=== PATIENT | male | born 1985 | race American Indian/Alaskan Native ===

== ENCOUNTER 2018-05-28 21:30 | Emergency (ER) | payer SELFPAY ==
[2018-05-28 21:43] VITALS: RESP 18; O2SAT 100
--- NOTE | 2018-05-28 21:53 | ED PDOC ---
Arrival/HPI - General Time Seen by Provider: 05/28/18 21:33 Historian: Patient - History of Present Illness Narrative History of Present Illness (Text): 05/28/18 21:41 Kishor Matias is a 33 year old male, whose past medical history includes tobacco abuse, who presents to the emergency department complaining of shortness of breath. Patient states he has been experiencing shortness of breath and productive cough since yesterday. Patient denies any fever, chills, abdominal pain, nausea, vomiting, diarrhea, urinary symptoms, back pain, neck pain, headache, dizziness, or any other complaints. Time/Duration: Other (yesterday) Symptom Onset: Gradual Symptom Course: Unchanged Activities at Onset: Light Context: Home Past Medical History - Provider Review Nursing Documentation Reviewed: Yes - Infectious Disease Hx of Infectious Diseases: None - Tetanus Immunization Tetanus Immunization: Unknown - Past Medical History Past Medical History: No Previous - Psychiatric Hx Depression: No Hx Emotional Abuse: No Hx Physical Abuse: No Hx Substance Use: No - Past Surgical History Past Surgical History: No Previous - Suicidal Assessment Feels Threatened In Home Enviroment: No Family/Social History - Physician Review Nursing Documentation Reviewed: Yes Family/Social History: Unknown Family HX Hx Alcohol Use: Yes Hx Substance Use: No Hx Substance Use Treatment: No Allergies/Home Meds Allergies/Adverse Reactions: Allergies No Known Allergies Allergy (Verified 05/29/18 12:23) Review of Systems - Physician Review All systems were reviewed & negative as marked: Yes - Review of Systems Constitutional: Normal. absent: Fevers Eyes: Normal ENT: Normal Respiratory: SOB, Cough, Sputum Cardiovascular: Normal. absent: Chest Pain Gastrointestinal: Normal. absent: Abdominal Pain, Diarrhea, Nausea, Vomiting Genitourinary Male: Normal. absent: Dysuria, Frequency, Hematuria, Urinary Output Changes Musculoskeletal: Normal. absent: Back Pain, Neck Pain Skin: Normal. absent: Rash Neurological: Normal. absent: Headache, Dizziness Endocrine: Normal Hemo/Lymphatic: Normal Psychiatric: Normal Physical Exam Vital Signs Reviewed: Yes Vital Signs Temp Pulse Resp BP Pulse Ox 05/28/18 23:51 98.6 F 80 18 116/57 L 100 05/28/18 21:37 98.8 F 67 18 100 Temperature: Afebrile Blood Pressure: Normal Pulse: Regular Respiratory Rate: Normal Appearance: Positive for: Well-Appearing, Non-Toxic, Comfortable Pain Distress: None Mental Status: Positive for: Alert and Oriented X 3 - Systems Exam Head: Present: Atraumatic, Normocephalic Pupils: Present: PERRL Extroacular Muscles: Present: EOMI Conjunctiva: Present: Normal Mouth: Present: Moist Mucous Membranes Neck: Present: Normal Range of Motion. No: Meningeal Signs, MIDLINE TENDERNESS , Paraspinal Tenderness Respiratory/Chest: Present: Clear to Auscultation, Good Air Exchange. No: Respiratory Distress, Accessory Muscle Use Cardiovascular: Present: Regular Rate and Rhythm, Normal S1, S2. No: Murmurs Abdomen: No: Tenderness, Distention, Peritoneal Signs Back: Present: Normal Inspection. No: CVA Tenderness, Midline Tenderness, Paraspinal Tenderness Upper Extremity: Present: Normal Inspection. No: Cyanosis, Edema Lower Extremity: Present: Normal Inspection. No: Edema Neurological: Present: GCS=15, CN II-XII Intact, Speech Normal Skin: Present: Warm, Dry, Normal Color. No: Rashes Psychiatric: Present: Alert, Oriented x 3, Normal Insight, Normal Concentration Medical Decision Making ED Course and Treatment: 05/28/18 21:41 Impression: 33 year old male complaining of shortness of breath and productive cough. Plan: -- Chest X-Ray -- Duoneb -- Reassess and disposition Progress Notes: 05/28/18 23:32 Chest X-Ray reviewed, shows no acute processes. On reevaluation the patient feels better and is in no acute distress. I have discussed the results and plan with the patient, who expresses understanding. Patient given the opportunity to ask question, all questions were answered and there is agreement with the plan to discharge the patient home. Patient is stable for discharge. Patient was instructed to follow up with physician/clinic in 1-2 days or return if symptoms persist/worsen or new concerning symptoms arise.. - RAD Interpretation Radiology Orders: 05/28/18 21:46 CHEST TWO VIEWS (PA/LAT) [RAD] Stat Clipper Machine: ED Physician - Medication Orders Current Medication Orders: Discontinued Medications Albuterol/Ipratropium (Duoneb 3 Mg/0.5 Mg (3 Ml) Ud) 3 ml IH Q15M DENA Stop: 05/28/18 22:31 Last Admin: 05/28/18 23:03 Dose: 3 ml Amoxicillin (Amoxil 500 Mg Cap) 500 mg PO STAT STA PRN Reason: Protocol Stop: 05/28/18 23:41 Last Admin: 05/28/18 23:57 Dose: 500 mg Prednisone (Prednisone Tab) 60 mg PO ONCE STA Stop: 05/28/18 23:41 Last Admin: 05/29/18 00:02 Dose: 60 mg - Scribe Statement The provider has reviewed the documentation as recorded by the [place] Provider Scribe Attestation: All medical record entries made by the Jacobibnate were at my direction and personally dictated by me. I have reviewed the chart and agree that the record accurately reflects my personal performance of the history, physical exam, medical decision making, and the department course for this patient. I have also personally directed, reviewed, and agree with the discharge instructions and disposition. Disposition/Present on Arrival - Present on Arrival Any Indicators Present on Arrival: No History of DVT/PE: No History of Uncontrolled Diabetes: No Urinary Catheter: No History Surgical Site Infection Following: None - Disposition Have Diagnosis and Disposition been Completed?: Yes Diagnosis: Bronchitis Disposition: HOME/ ROUTINE Disposition Time: 23:25 Condition: GOOD Discharge Instructions (ExitCare): Acute Bronchitis Prescriptions: Amoxicillin 875 mg PO BID #20 tab predniSONE [predniSONE Tab] 20 mg PO TID #15 tab Albuterol HFA [Ventolin HFA] 1 puff IH QID #1 puff Forms: [facility] (Malagasy), WORK NOTE
[2018-05-28] MEDS: Albuterol-Ipratrop 3 mg / 0.5 (3 ml) UD IH SCH ×3 (22:07→23:03)
[2018-05-28 23:52] VITALS: BP 116/57; PULSE 80; TEMP 98.6
--- NOTE | 2018-05-29 09:11 | RAD ---
Date of service: 05/28/2018 HISTORY: sob COMPARISON: No prior. TECHNIQUE: Chest PA and lateral FINDINGS: LUNGS: No active pulmonary disease. PLEURA: No significant pleural effusion identified. No pneumothorax apparent. CARDIOVASCULAR: Normal. OSSEOUS STRUCTURES: No significant abnormalities. VISUALIZED UPPER ABDOMEN: Normal. OTHER FINDINGS: None. IMPRESSION: No active disease.
== END 2018-05-28 23:55 | disposition home or self-care (01) ==
LOC: ED 21:30
DX: J40 Bronchitis, not specified as acute or chronic (principal)

== ENCOUNTER 2018-05-29 12:18 | Emergency (ER) | payer SELFPAY ==
[2018-05-29 12:22] VITALS: BMI 24.7
[2018-05-29 12:24] VITALS: RESP 18
[2018-05-29] MEDS ORDERED: guaiFENesin DM 200 mg-20 mg/10 ml UD PO STA (12:39)
[2018-05-29] MEDS ORDERED: Albuterol-Ipratrop 3 mg / 0.5 (3 ml) UD IH STA (12:39)
--- NOTE | 2018-05-29 13:08 | ED PDOC ---
Arrival/HPI - General Chief Complaint: Shortness Of Breath Time Seen by Provider: 05/29/18 12:20 Historian: Patient - History of Present Illness Narrative History of Present Illness (Text): 05/29/18 12:25 33 year old male, whose past medical history includes tobacco abuse, who presents complaining of shortness of breath for past 3 days and congestion. Patient denies history of asthma and notes he had bronchitis when he was young. Patient notes he has phlegm buildup in throat, which is cleared out with coughing. Patient states he is currently slightly calmer. Patient denies any fevers, chills, chest pain, abdominal pain, nausea, vomiting, diarrhea, back pain, neck pain, urinary symptoms, headache, dizziness, or any other complaint. Time/Duration: > week (past 3 days) Symptom Onset: Sudden Symptom Course: Unchanged Activities at Onset: Light Past Medical History - Provider Review Nursing Documentation Reviewed: Yes - Infectious Disease Hx of Infectious Diseases: None - Tetanus Immunization Tetanus Immunization: Unknown - Past Medical History Past Medical History: No Previous - Psychiatric Hx Depression: No Hx Emotional Abuse: No Hx Physical Abuse: No Hx Substance Use: Yes (marijuana) - Past Surgical History Past Surgical History: No Previous - Anesthesia Hx Anesthesia: No - Suicidal Assessment Feels Threatened In Home Enviroment: No Family/Social History - Physician Review Nursing Documentation Reviewed: Yes Family/Social History: No Known Family HX Smoking Status: Light Smoker < 10 Cigarettes Daily Hx Alcohol Use: Yes Hx Substance Use: Yes (marijuana) Hx Substance Use Treatment: No Allergies/Home Meds Allergies/Adverse Reactions: Allergies No Known Allergies Allergy (Verified 05/29/18 12:23) Review of Systems - Physician Review All systems were reviewed & negative as marked: Yes - Review of Systems Constitutional: Normal. absent: Fevers Eyes: Normal ENT: Normal Respiratory: SOB, Cough, Sputum, Other (feels congested before clearing out phlegm ). absent: Normal Cardiovascular: Normal. absent: Chest Pain Gastrointestinal: Normal. absent: Abdominal Pain, Diarrhea, Nausea, Vomiting Genitourinary Male: Normal. absent: Urinary Output Changes Musculoskeletal: Normal. absent: Back Pain, Neck Pain Skin: Normal. absent: Rash Neurological: Normal Endocrine: Normal Hemo/Lymphatic: Normal Psychiatric: Normal Physical Exam Vital Signs Reviewed: Yes Vital Signs Temp Pulse Resp BP Pulse Ox 05/29/18 17:06 98.4 F 64 18 128/73 100 05/29/18 16:00 98.4 F 63 18 128/70 99 05/29/18 14:36 98.5 F 64 18 137/74 100 05/29/18 12:20 18 100 05/29/18 12:18 98.5 F 70 18 132/79 100 Temperature: Afebrile Blood Pressure: Normal Pulse: Regular Respiratory Rate: Normal Appearance: Positive for: Well-Appearing, Non-Toxic Pain Distress: None Mental Status: Positive for: Alert and Oriented X 3 - Systems Exam Head: Present: Atraumatic, Normocephalic Pupils: Present: PERRL Extroacular Muscles: Present: EOMI Conjunctiva: Present: Normal Mouth: Present: Moist Mucous Membranes Neck: Present: Normal Range of Motion Respiratory/Chest: Present: Clear to Auscultation, Good Air Exchange. No: Respiratory Distress, Accessory Muscle Use Cardiovascular: Present: Regular Rate and Rhythm, Normal S1, S2. No: Murmurs Abdomen: No: Tenderness, Distention, Peritoneal Signs Back: Present: Normal Inspection Upper Extremity: Present: Normal Inspection. No: Cyanosis, Edema Lower Extremity: Present: Normal Inspection. No: Edema Neurological: Present: GCS=15, CN II-XII Intact, Speech Normal Skin: Present: Warm, Dry, Normal Color. No: Rashes Psychiatric: Present: Alert, Oriented x 3, Normal Insight, Normal Concentration Medical Decision Making ED Course and Treatment: 05/29/18 12:25 Impression: 33 year old male who presents to the Emergency department for shortness of breath. Differential Diagnosis included but are not limited to: bronchitis vs viral symptoms Plan: -- Duoneb -- Prednisone -- Robitussin -- Reassess and disposition Prior Visits: Notes and results from previous visits were reviewed. Patient was last seen in the emergency department yesterday on 05/28/18 for shortness of breath. Patient was discharged home with clear Chest X-Ray reading. Progress Notes: Chest X-Ray reviewed from yesterday 05/28/18 23:32, which showed no acute processes. 05/29/18 17:06 Patient felt better after medications but he was concerned he'd have another coughing spell. I discussed the symptoms with him and his Mother who is at bedside. We observed him in the ED for several hours to make sure he felt comfortable going home. He had no coughing spells nor any shortness of breathe in the ED. He and his mom feel comfortable going home at this time. They will return to the ED if any further symptoms worsen or any other concern. - Medication Orders Current Medication Orders: Discontinued Medications Albuterol/Ipratropium (Duoneb 3 Mg/0.5 Mg (3 Ml) Ud) 3 ml IH STAT STA Stop: 05/29/18 12:40 Last Admin: 05/29/18 12:45 Dose: 3 ml Guaifenesin/Dextromethorphan (Robitussin Dm) 10 ml PO STAT STA Stop: 05/29/18 12:40 Last Admin: 05/29/18 12:45 Dose: 10 ml Lorazepam (Ativan) 1 mg IM ONCE ONE PRN Reason: Protocol Stop: 05/29/18 13:51 Last Admin: 05/29/18 14:18 Dose: 1 mg IM Administration Charges Document 05/29/18 14:18 LA (Rec: 05/29/18 14:18 LA [id number]) Injection Site MAR Injection Site Left Arm Charges for Administration # of IM Administrations 1 Prednisone (Prednisone Tab) 60 mg PO STAT ONE Stop: 05/29/18 12:41 Last Admin: 05/29/18 12:45 Dose: 60 mg - Jacobibe Statement The provider has reviewed the documentation as recorded by the Jacobibnate Lancasterh All medical record entries made by the Jacobibnate were at my direction and personally dictated by me. I have reviewed the chart and agree that the record accurately reflects my personal performance of the history, physical exam, medical decision making, and the department course for this patient. I have also personally directed, reviewed, and agree with the discharge instructions and disposition. Disposition/Present on Arrival - Present on Arrival Any Indicators Present on Arrival: No History of DVT/PE: No History of Uncontrolled Diabetes: No Urinary Catheter: No History of Decub. Ulcer: No History Surgical Site Infection Following: None - Disposition Have Diagnosis and Disposition been Completed?: Yes Diagnosis: Bronchitis Disposition: HOME/ ROUTINE Disposition Time: 17:00 Patient Plan: Discharge Condition: IMPROVED Discharge Instructions (ExitCare): Chronic Bronchitis (DC) Additional Instructions: SHAWN DOUGLAS, thank you for letting us take care of you today. Your provider was Devyn Andrea DO and you were treated for Bronchitis. The emergency medical care you received today was directed at your acute symptoms. If you were prescribed any medication, please fill it and take as directed. It may take several days for your symptoms to resolve. Return to the Emergency Department if your symptoms worsen, do not improve, or if you have any other problems. Please contact your doctor or call one of the physicians/clinics you have been referred to that are listed on the Patient Visit Information form that is included in your discharge packet. Bring any paperwork you were given at discharge with you along with any medications you are taking to your follow up visit. Our treatment cannot replace ongoing medical care by a primary care provider outside of the emergency department. Thank you for allowing the [facility] team to be part of your care today. If you had an X-Ray or CT scan: A Radiologist will review the ED reading if any change in treatment is needed we will contact you. If you had a blood, urine, or wound culture: It will take several days for the results, if any change in treatment is needed we will contact you. If you had an STI test: It will take 48 hours for the results. Please call after 1 week if you have not heard back. Referrals: [facility] [Outside] - Follow up with primary [facility] [place] [place] [Outside] - Follow up with primary Forms: [employer] (Croatian)
[2018-05-29 17:06] VITALS: TEMP 98.4
[2018-05-29 17:07] VITALS: BP 128/73; PULSE 64; O2SAT 100
== END 2018-05-29 17:06 | disposition home or self-care (01) ==
LOC: ED 12:18
DX: J40 Bronchitis, not specified as acute or chronic (principal); F17.210 Nicotine dependence, cigarettes, uncomplicated
CPT/HCPCS: 96372; 99284; J2060

== ENCOUNTER 2018-05-30 18:53 | Emergency (ER) | payer SELFPAY ==
[2018-05-30 18:53] VITALS: BMI 24.7
[2018-05-30 19:11] VITALS: PULSE 77; TEMP 98.7; O2SAT 100
[2018-05-30] MEDS ORDERED: Ipratropium 0.02% Inhal Soln (0.5 mg/2.5 ml) UD IH STA (19:15)
[2018-05-30] MEDS ORDERED: Albuterol 0.083% Inhal Sol (2.5 mg/3 mL) UD INH STA ×3 (19:15→20:34)
[2018-05-30] MEDS ORDERED: Sodium Chloride 0.9% 1,000 ML IV STA (19:15)
--- NOTE | 2018-05-30 19:33 | ED PDOC ---
Arrival/HPI - General Chief Complaint: Shortness Of Breath Time Seen by Provider: 05/30/18 19:06 Historian: Patient - History of Present Illness Narrative History of Present Illness (Text): 33 y/o M w/ h/o bronchitis presenting to the ED for persistent coughing and chest pain. Patient states he had been experiencing hacking cough with associated chest tightness and nausea as well. He reports having the sensation of phlegm within his throat that he is unable to clear out. He denies fevers, headaches, abdominal pain, back pain, syncopal episodes, weakness or palpitations. Per the patient's dad, the patient was seen in the ED yesterday and was discharged with Augmentin and steroids. He reports being unable to tolerate PO intake and has been dehydrated as a result of his symptoms. PCP: None Time/Duration: Prior to Arrival Symptom Course: Worsening Quality: Aching Severity Level: Moderate Activities at Onset: Emotional Upset Context: Home Past Medical History - Provider Review Nursing Documentation Reviewed: Yes - Travel History Have you recently traveled outside [place] w/in the past 3 mons?: No - Patient History Narrative Patient History: Bronchitis - Infectious Disease Hx of Infectious Diseases: None - Tetanus Immunization Tetanus Immunization: Unknown - Past Medical History Past Medical History: No Previous - Psychiatric Hx Depression: No Hx Emotional Abuse: No Hx Physical Abuse: No Hx Substance Use: Yes (marijuana) - Past Surgical History Past Surgical History: No Previous - Anesthesia Hx Anesthesia: No - Suicidal Assessment Feels Threatened In Home Enviroment: No Family/Social History - Physician Review Nursing Documentation Reviewed: Yes Family/Social History: Unknown Family HX Smoking Status: Light Smoker < 10 Cigarettes Daily Hx Alcohol Use: Yes Frequency of alcohol use: Socially Hx Substance Use: Yes (marijuana) Hx Substance Use Treatment: No Allergies/Home Meds Allergies/Adverse Reactions: Allergies No Known Allergies Allergy (Verified 05/29/18 12:23) Review of Systems - Physician Review All systems were reviewed & negative as marked: Yes - Review of Systems Constitutional: absent: Fatigue, Fevers, Night Sweats Eyes: absent: Vision Changes, Photophobia ENT: absent: Hearing Changes, Tinnitus Respiratory: SOB, Cough, Sputum. absent: Wheezing Cardiovascular: Chest Pain. absent: Palpitations, Edema Gastrointestinal: absent: Abdominal Pain, Constipation, Diarrhea, Vomiting Genitourinary Male: absent: Dysuria, Hematuria Musculoskeletal: absent: Back Pain, Joint Swelling Skin: absent: Rash, Skin Lesions Neurological: Dizziness. absent: Headache, Focal Weakness Endocrine: absent: Diaphoresis Psychiatric: Anxiety Physical Exam Vital Signs Reviewed: Yes Vital Signs Temp Pulse Resp BP Pulse Ox 05/30/18 21:09 77 18 127/72 100 05/30/18 19:30 18 99 05/30/18 19:10 98.7 F 77 24 138/85 100 Temperature: Afebrile Blood Pressure: Normal Pulse: Regular Respiratory Rate: Normal Appearance: Positive for: Non-Toxic, Uncomfortable Pain Distress: Mild Mental Status: Positive for: Alert and Oriented X 3 - Systems Exam Head: Present: Atraumatic, Normocephalic Pupils: Present: PERRL Extroacular Muscles: Present: EOMI Mouth: Present: Dry Pharnyx: No: ERYTHEMA, EXUDATE, TONSILS ENLARGED Neck: Present: Normal Range of Motion. No: Meningeal Signs, MIDLINE TENDERNESS Respiratory/Chest: Present: Decreased Breath Sounds, Tachypneic. No: Accessory Muscle Use, Wheezes Cardiovascular: Present: Regular Rate and Rhythm, Normal S1, S2. No: Tachycardic Abdomen: Present: Normal Bowel Sounds. No: Tenderness, Distention, Peritoneal Signs Neurological: Present: GCS=15, CN II-XII Intact, Speech Normal Skin: Present: Warm, Dry, Normal Color Psychiatric: Present: Alert, Oriented x 3, Normal Insight Medical Decision Making ED Course and Treatment: 05/30/18 19:54 Impression 33 y/o M w/ coughing and chills consistent with bronchitis Given patient denies fevers, chills or purulent cough, its less likely patient has PNA. Will check labs. Differential Includes But is Not Limited To: Bronchitis PNA Plan --Labs --Duoenebs --Methyprednisolone --Reassess & disposition Progress Notes 05/30/18 20:35 Patient noted to be sleeping and comfortable after nebulizer treatments. Reiteration of the importance of medication administration and adherence given to patient and father who demonstrate understanding. Scripts provided. Patient stable for discharge. - Lab Interpretations Lab Results: 05/30/18 20:00 05/30/18 20:00 Lab Results 05/30/18 20:00: Sodium 138, Potassium 4.2, Chloride 102, Carbon Dioxide 20 L, Anion Gap 21 H, BUN 19, Creatinine 1.0, Est GFR ( Amer) > 60, Est GFR ( Non-Af Amer) > 60, Random Glucose 115 H, Calcium 10.6 H, Total Bilirubin 1.1, AST 34, ALT 22, Alkaline Phosphatase 50, Troponin I < 0.01, Total Protein 8.7 H , Albumin 5.1 H, Globulin 3.6, Albumin/Globulin Ratio 1.4 05/30/18 20:00: WBC 13.5 H, RBC 5.31, Hgb 15.5, Hct 44.2, MCV 83.2, MCH 29.2, MCHC 35.1, RDW 13.9, Plt Count 248, MPV 11.7 H, Gran % 85.7 H, Lymph % (Auto) 10.0 L, [place] % (Auto) 4.1, Eos % (Auto) 0.1 L, Baso % (Auto) 0.1, Gran # 11.57 H , Lymph # (Auto) 1.4, [place] # (Auto) 0.6, Eos # (Auto) 0.0, Baso # (Auto) 0.02 - Medication Orders Current Medication Orders: Discontinued Medications Albuterol Sulfate (Albuterol 0.083% Inhal Maria Luisa (2.5 Mg/3 Ml) Ud) 2.5 mg INH STAT STA Stop: 05/30/18 19:16 Last Admin: 05/30/18 20:12 Dose: 2.5 mg Albuterol Sulfate (Albuterol 0.083% Inhal Maria Luisa (2.5 Mg/3 Ml) Ud) 2.5 mg INH STAT STA Stop: 05/30/18 19:45 Last Admin: 05/30/18 20:12 Dose: 2.5 mg Albuterol Sulfate (Albuterol 0.083% Inhal Maria Luisa (2.5 Mg/3 Ml) Ud) 2.5 mg INH STAT STA Stop: 05/30/18 20:35 Last Admin: 05/30/18 21:02 Dose: 2.5 mg Diazepam (Valium) 2 mg PO ONCE ONE PRN Reason: Protocol Stop: 05/30/18 19:17 Last Admin: 05/30/18 20:12 Dose: 2 mg Sodium Chloride (Sodium Chloride 0.9%) 1,000 mls @ 999 mls/hr IV .Q1H1M STA Stop: 05/30/18 20:15 Last Admin: 05/30/18 20:10 Dose: 999 mls/hr eMAR Start Stop Document 05/30/18 20:10 AD (Rec: 05/30/18 20:12 AD [email or web address] Intravenous Solution Start Date 05/30/18 Start Time 20:12 Ipratropium [place] (Atrovent) 0.5 mg IH STAT STA Stop: 05/30/18 19:16 Last Admin: 05/30/18 20:12 Dose: 0.5 mg Ketorolac Tromethamine (Toradol) 60 mg IM STAT STA Stop: 05/30/18 19:16 Last Admin: 05/30/18 20:12 Dose: 60 mg MAR Pain Assessment Document 05/30/18 20:12 AD (Rec: 05/30/18 20:12 AD [id number] Pain Reassessment Is this a pain reassessment? No IM Administration Charges Document 05/30/18 20:12 AD (Rec: 05/30/18 20:12 AD [email or web address] Injection Site MAR Injection Site Right Gluteus Jan Charges for Administration # of IM Administrations 1 Methylprednisolone (Solu-Medrol) 125 mg IVP STAT STA Stop: 05/30/18 19:46 Last Admin: 05/30/18 20:12 Dose: 125 mg IVP Administration Document 05/30/18 20:12 AD (Rec: 05/30/18 20:13 AD [email or web address] Charges for Administration # of IVP Administrations 1 - Scribe Statement The provider has reviewed the documentation as recorded by the Jacobibnate Marin All medical record entries made by the Jacobibnate were at my direction and personally dictated by me. I have reviewed the chart and agree that the record accurately reflects my personal performance of the history, physical exam, medical decision making, and the department course for this patient. I have also personally directed, reviewed, and agree with the discharge instructions and disposition. Disposition/Present on Arrival - Present on Arrival Any Indicators Present on Arrival: No History of DVT/PE: No History of Uncontrolled Diabetes: No Urinary Catheter: No History of Decub. Ulcer: No History Surgical Site Infection Following: None - Disposition Have Diagnosis and Disposition been Completed?: Yes Diagnosis: Bronchitis Disposition: HOME/ ROUTINE Disposition Time: 20:40 Patient Plan: Discharge Condition: IMPROVED Discharge Instructions (ExitCare): Acute Bronchitis, Adult (DC) Prescriptions: Albuterol 0.083% [Albuterol 0.083% Inhal Maria Luisa (2.5 mg/3 ml) UD] 2.5 mg IH Q4H 2 Days #6 neb diaZEpam [Valium] 2 mg PO PRN PRN 3 Days #4 tab PRN Reason: Anxiety Referrals: [facility] [Outside] - Follow up with primary Forms: [employer] (Pashto)
[2018-05-30 20:36] LABS: WHITE BLOOD COUNT 13.5 10^3/ul (4.5-11.0)
[2018-05-30 20:37] LABS: BASO % 0.1 % (0.0-3.0); EOS % 0.1 % (1.5-5.0); GRAN # 11.57 (1.4-6.5); GRAN % 85.7 % (50.0-68.0); HEMOGLOBIN 15.5 g/dL (14.0-18.0); MEAN CELL VOLUME 83.2 fl (80.0-105.0); MEAN CORPUSCULAR HEMOGLOBIN 29.2 pg (25.0-35.0); MEAN CORPUSCULAR HGB CONC 35.1 g/dl (31.0-37.0); MEAN PLATELET VOLUME 11.7 fl (7.0-11.0); MONO % 4.1 % (1.0-6.0); RBC 5.31 10^6/uL (3.5-6.1); RED CELL DISTRIBUTION WIDTH 13.9 % (11.5-14.5)
[2018-05-30 20:38] LABS: BASO # 0.02 K/mm3 (0.0-2.0); LYMPH # 1.4 (1.2-3.4); MONO # 0.6 (0.1-0.6)
[2018-05-30 20:42] LABS: ALB/GLOB RATIO 1.4 (1.1-1.8); ALBUMIN 5.1 g/dL (3.0-4.8); ALT/SGPT 22 U/L (7-56); AST/SGOT 34 U/L (17-59); BLOOD UREA NITROGEN 19 mg/dL (7-21); CALCIUM 10.6 mg/dL (8.4-10.5); GFR AFRICAN-AMERICAN > 60; GFR NON-AFRICAN AMERICAN > 60
[2018-05-30 20:52] LABS: TROPONIN I < 0.01 ng/mL
[2018-05-30 21:50] VITALS: BP 127/72; RESP 18
== END 2018-05-30 21:09 | disposition home or self-care (01) ==
LOC: ED 18:53
DX: J40 Bronchitis, not specified as acute or chronic (principal); F17.210 Nicotine dependence, cigarettes, uncomplicated
CPT/HCPCS: 80053; 84484; 85025; 96372; 96374; 99284; J1885; J2930; J7030

== ENCOUNTER 2018-07-28 20:03 | Emergency (ER) | payer SELFPAY ==
[2018-07-28 20:03] VITALS: BMI 24.7
[2018-07-28 20:26] VITALS: TEMP 99
--- NOTE | 2018-07-28 21:55 | ED PDOC ---
Arrival/HPI - General Chief Complaint: Shortness Of Breath Time Seen by Provider: 07/28/18 21:26 Historian: Patient - History of Present Illness Narrative History of Present Illness (Text): 07/28/18 21:37 33 year old male former smoker, with no significant past medical history, presents to the emergency department for evaluation of trouble breathing, and chest pressure, for the past month. Patient states he has been having similar symptoms ever since being diagnosed with bronchitis a 2 months ago. Patient states he has been waking up in the morning with labored breathing, and feelings of something stuck in his throat. Patient informs of having acid reflux symptoms over this period of time as well. Patient states he quit smoking cigarettes in May, smokes marijuana twice daily, and occasional alcohol use. Patient denies any denies fevers, chills, headache, dizziness, abdominal pain, nausea, vomiting, diarrhea, back pain, neck pain, urinary/bowel changes, or any other complaint. Time/Duration: Prior to Arrival, 24 hours (Symptoms worsened in past day) Symptom Onset: Gradual Symptom Course: Unchanged Past Medical History - Provider Review Nursing Documentation Reviewed: Yes - Infectious Disease Hx of Infectious Diseases: None - Tetanus Immunization Tetanus Immunization: Unknown - Past Medical History Past Medical History: No Previous - Cardiac Hx Cardiac Disorders: No - Pulmonary Hx Respiratory Disorders: Yes Hx Bronchitis: Yes - Neurological Hx Neurological Disorder: No - HEENT Hx HEENT Disorder: No - Renal Hx Renal Disorder: No - Endocrine/Metabolic Hx Endocrine Disorders: No - Hematological/Oncological Hx Blood Disorders: No - Integumentary Hx Dermatological Disorder: No - Musculoskeletal/Rheumatological Hx Musculoskeletal Disorders: No - Gastrointestinal Hx Gastrointestinal Disorders: No - Genitourinary/Gynecological Hx Genitourinary Disorders: No - Psychiatric Hx Psychophysiologic Disorder: No Hx Substance Use: Yes (marijuana) - Past Surgical History Past Surgical History: No Previous - Anesthesia Hx Anesthesia: No - Suicidal Assessment Feels Threatened In Home Enviroment: No Family/Social History - Physician Review Nursing Documentation Reviewed: Yes Family/Social History: No Known Family HX Smoking Status: Former Smoker Hx Alcohol Use: Yes Hx Substance Use: Yes (marijuana) Hx Substance Use Treatment: No Allergies/Home Meds Allergies/Adverse Reactions: Allergies No Known Allergies Allergy (Verified 07/28/18 20:21) Review of Systems - Physician Review All systems were reviewed & negative as marked: Yes - Review of Systems Constitutional: absent: Fevers, Night Sweats Gastrointestinal: absent: Abdominal Pain, Diarrhea, Nausea, Vomiting Genitourinary Male: absent: Urinary Output Changes Musculoskeletal: absent: Back Pain, Neck Pain Neurological: absent: Headache, Dizziness Physical Exam - Physical Exam Narrative Physical Exam (Text): 07/28/18 21:56 Gen: VS reviewed, alert, well developed, well nourished, nontoxic, mild distress. ENT: normal pharynx. Eye: EOMI, PERRL. Neck: no JVD, supple, no adenopathy. CV: regular rate, regular rhythm, no rubs, no murmur, no gallops, S1, S2, pulses equal and strong. Pulm: no distress, clear to auscultation, no wheeze, no rhonchi, breath sounds equal, no rales. Abd: soft, nontender, no guarding, no rebound, no rigidity, normal bowel sounds. Ext: no edema. Skin: good color, no rash, no cyanosis. Psych: responds appropriately to questions, normal affect. Neuro: oriented x 3, CN2-12 intact grossly, motor intact, sensation intact. Vital Signs Reviewed: Yes Vital Signs Temp Pulse Resp BP Pulse Ox 07/28/18 20:22 99.0 F 58 L 16 130/77 99 Temperature: Afebrile Blood Pressure: Normal Pulse: Regular Respiratory Rate: Normal Appearance: Positive for: Well-Appearing, Non-Toxic, Comfortable Pain Distress: None Mental Status: Positive for: Alert and Oriented X 3 Medical Decision Making ED Course and Treatment: 07/28/18 21:58 Impression: 33 year old male presents for evaluation of trouble breathing. Plan: -- EKG -- Chest X-ray -- Reassess and disposition Prior Visits: Notes and results from previous visits were reviewed. Progress Notes: 07/28/18 22:05 Patient has been encouraged to stop smoking marijuana as it may contribute to his symptoms. 07/29/18 00:00 patient feels well and ready to go home. patient was seen for symptoms suggestive of GERD and nonturnal regurgitation. patient encouraged to make an appointment with export freight manager for eventual endoscopy. patient remained stable throughout ED course. patient to empirically take antacid. - RAD Interpretation Narrative RAD Interpretations (Text): 07/28/18 23:58 cxr my read: no focal infiltrate, no ptx, no wide mediastinum Radiology Orders: 07/28/18 21:26 CXR [CHEST TWO VIEWS (PA/LAT)] [RAD] Stat Furnace Firer: ED Physician - EKG Interpretation EKG Interpretation (Text): 07/28/18 22:46 sinus bradycardia at 56 bpm, nml qrs, nml axis, no acute sttw abn Interpreted by ED Physician: Yes - Scribe Statement The provider has reviewed the documentation as recorded by the Scribe Maurice Bianchi Provider Scribe Attestation: All medical record entries made by the Scribe were at my direction and personally dictated by me. I have reviewed the chart and agree that the record accurately reflects my personal performance of the history, physical exam, medical decision making, and the department course for this patient. I have also personally directed, reviewed, and agree with the discharge instructions and disposition. Disposition/Present on Arrival - Present on Arrival Any Indicators Present on Arrival: No History of DVT/PE: No History of Uncontrolled Diabetes: No Urinary Catheter: No History of Decub. Ulcer: No History Surgical Site Infection Following: None - Disposition Have Diagnosis and Disposition been Completed?: Yes Diagnosis: GERD (gastroesophageal reflux disease) Disposition: HOME/ ROUTINE Disposition Time: 00:02 Patient Plan: Discharge Condition: STABLE Discharge Instructions (ExitCare): Acid Reflux (Gastroesophageal Reflux Disease), Adult (DC) Prescriptions: Omeprazole Magnesium [Prilosec Otc] 20 mg PO DAILY 30 Days #30 tablet. Referrals: [facility] [Outside] - Follow up with primary Mickie Mckenzie MD [Medical Doctor] - Follow up with primary Hallie Harrison MD [Medical Doctor] - Follow up with primary Forms: [employer] (Tristanian)
[2018-07-28 22:09] LABS: BASO # 0.06 K/mm3 (0.0-2.0); BASO % 0.8 % (0.0-3.0); EOS # 0.4 (0.0-0.7); EOS % 5.1 % (1.5-5.0); GRAN # 3.08 (1.4-6.5); HEMOGLOBIN 14.5 g/dL (14.0-18.0); LYMPH # 3.4 (1.2-3.4); LYMPH % 43.8 % (22.0-35.0); MEAN CELL VOLUME 86.4 fl (80.0-105.0); MEAN CORPUSCULAR HEMOGLOBIN 29.5 pg (25.0-35.0); MEAN CORPUSCULAR HGB CONC 34.1 g/dl (31.0-37.0); MEAN PLATELET VOLUME 11.1 fl (7.0-11.0); MONO # 0.8 (0.1-0.6); MONO % 10.3 % (1.0-6.0); RBC 4.92 10^6/uL (3.5-6.1); WHITE BLOOD COUNT 7.7 10^3/ul (4.5-11.0)
[2018-07-28 22:12] LABS: ALB/GLOB RATIO 1.4 (1.1-1.8); ALBUMIN 4.9 g/dL (3.0-4.8); ALT/SGPT 22 U/L (7-56); AST/SGOT 29 U/L (17-59); BLOOD UREA NITROGEN 13 mg/dL (7-21); CALCIUM 10.4 mg/dL (8.4-10.5); GFR NON-AFRICAN AMERICAN > 60; LIPASE 234 U/L (23-300)
[2018-07-28 22:15] LABS: PARTIAL THROMBOPLASTIN TIME 35.3 Seconds (25.1-36.5)
[2018-07-28 22:17] LABS: INR 0.97
[2018-07-28 22:23] LABS: TROPONIN I < 0.01 ng/mL
[2018-07-29 02:39] VITALS: BP 119/80; PULSE 80; RESP 18; O2SAT 98
--- NOTE | 2018-07-29 09:00 | RAD ---
HISTORY: Chest pain COMPARISON: 05/28/2018. TECHNIQUE: Chest PA and lateral FINDINGS: LINES AND TUBES: None. LUNG AND PLEURA: The lungs are well inflated and clear. No pleural effusion or pneumothorax. HEART AND MEDIASTINUM: The heart is not enlarged. The hilar and mediastinal contours are within normal limits. SKELETAL STRUCTURES: The bony structures are within normal limits for the patient's age. VISUALIZED UPPER ABDOMEN: Normal. OTHER FINDINGS: None. IMPRESSION: No active pulmonary disease.
--- NOTE | 2018-07-29 09:21 | CARD ---
APPROVED REPORT Date of service: 07/28/2018 EKG Measurement Heart [id number] <Conclusion> Sinus bradycardia with sinus arrhythmia Otherwise normal ECG
== END 2018-07-29 02:39 | disposition home or self-care (01) ==
LOC: ED 20:03
DX: K21.9 Gastro-esophageal reflux disease without esophagitis (principal)